=== PATIENT | male | born 1965 | race Caucasian/White ===

== ENCOUNTER 2016-07-27 02:26 | Emergency (ER) | payer BC, OTHER ==
[~2016-07-27] VITALS: Ht 175.3 cm; Wt 100.4 kg
[2016-07-27 02:30] VITALS: BP 123/86
[2016-07-27] MEDS ORDERED: NAPROXEN500 MG PO (03:44)
[2016-07-27] MEDS ORDERED: VALIUM5 MG PO (03:44)
== END 2016-07-27 03:58 | disposition home or self-care (01) ==
LOC: EME 02:26 → EXP 02:26
DX: S09.11XA Strain of muscle and tendon of head, initial encounter (principal); X50.3XXA Overexertion from repetitive movements, initial encounter
CPT/HCPCS: 99281; 99283

== ENCOUNTER 2017-09-17 20:44 | Emergency (ER) | payer BC ==
[~2017-09-17] VITALS: Ht 175.3 cm; Wt 99.7 kg
[~2017-09-17 20:44] MED LIST: NAPROXEN500 MG PO; VALIUM5 MG PO
[2017-09-17 21:14] LABS: HEMATOCRIT 45.6 % (38.0-50.0); HEMOGLOBIN 15.6 G/DL (12.5-16.6); MCH 28.5 PG (29.0-34.0); MCHC 34.2 G/DL (30.0-36.0); MCV 83.4 FL (86-99); PLATELET COUNT 178 K/uL (156-360); RBC DIS.WIDTH-CV 13.3 % (11.8-14.6); RBC DIS.WIDTH-SD 40.4 % (39-53); RED BLOOD COUNT 5.47 M/uL (4.00-5.50); WHITE BLOOD COUNT 6.1 K/uL (4.1-10.2)
[2017-09-17 21:16] LABS: APPEARANCE CLEAR ((CLEAR)); BILIRUBIN NEGATIVE; BLOOD NEGATIVE; COLOR YELLOW ((YELLOW)); GLUCOSE (STRIP) >=500; KETONES 5; LEUKOCYTES NEGATIVE; NITRITE NEGATIVE; PROTEIN (STRIP) 30; SPECIFIC GRAVITY 1.027 (1.000-1.030); UCUL ADDED? NO; UROBILINOGEN 0.2 MG/DL (0.2-1.0)
[2017-09-17 21:22] LABS: ALBUMIN 4.5 g/dL (3.2-4.8); CHLORIDE 102 mEq/L (99-109); POTASSIUM 4.1 mEq/L (3.7-5.4); SODIUM 140 mEq/L (136-147)
[2017-09-17 21:24] LABS: GLUCOSE 192 mg/dL (70-99); TOTAL PROTEIN 8.1 g/dL (6.4-8.3)
[2017-09-17 21:26] LABS: TOTAL BILIRUBIN 0.6 mg/dL (0.0-1.0)
[2017-09-17 21:28] LABS: ALKALINE PHOSPHATASE 112 IU/L (3-129); CREATININE 1.2 mg/dL (0.6-1.3); GFR ESTIMATE (CALCULATED) > 59 mL/min/ (58.99-99999)
[2017-09-17 21:29] LABS: UREA NITROGEN (BUN) 15 mg/dL (9-23)
[2017-09-17 21:30] LABS: AST (GOT) 55 IU/L (2-34)
[2017-09-17 21:31] LABS: ALT (GPT) 69 IU/L (3-49)
[2017-09-17 23:27] VITALS: BP 122/87
== END 2017-09-17 23:37 | disposition home or self-care (01) ==
LOC: EME 20:44
DX: R10.31 Right lower quadrant pain (principal); Z98.1 Arthrodesis status; Z88.0 Allergy status to penicillin
CPT/HCPCS: 74176; 80053; 81003; 85027; 99281; 99284

== ENCOUNTER 2017-12-18 18:56 | Emergency (ER) | payer BC ==
[~2017-12-18] VITALS: Ht 175.3 cm; Wt 93.9 kg
[2017-12-18 19:37] LABS: HEMOGLOBIN 14.1 G/DL (12.5-16.6); MCH 27.6 PG (29.0-34.0); MCHC 34.4 G/DL (30.0-36.0); MCV 80.4 FL (86-99); PLATELET COUNT 157 K/uL (156-360); RBC DIS.WIDTH-CV 13.2 % (11.8-14.6); RBC DIS.WIDTH-SD 38.5 % (39-53); WHITE BLOOD COUNT 4.9 K/uL (4.1-10.2)
[2017-12-18 19:50] LABS: APPEARANCE CLEAR ((CLEAR)); BILIRUBIN NEGATIVE; BLOOD NEGATIVE; COLOR STRAW ((YELLOW)); GLUCOSE (STRIP) >=500; KETONES NEGATIVE; LEUKOCYTES NEGATIVE; NITRITE NEGATIVE; PROTEIN (STRIP) NEGATIVE; SPECIFIC GRAVITY 1.028 (1.000-1.030); UCUL ADDED? NO; UROBILINOGEN 0.2 MG/DL (0.2-1.0)
[2017-12-18 19:52] LABS: CHLORIDE 101 mEq/L (99-109); POTASSIUM 3.7 mEq/L (3.7-5.4); SODIUM 139 mEq/L (136-147)
[2017-12-18 19:53] LABS: GLUCOSE 294 mg/dL (70-99)
[2017-12-18 19:57] LABS: CREATININE 1.3 mg/dL (0.6-1.3); GFR ESTIMATE (CALCULATED) > 59 mL/min/ (58.99-99999)
[2017-12-18 19:58] LABS: UREA NITROGEN (BUN) 17 mg/dL (9-23)
[2017-12-18 20:29] VITALS: BP 119/71
== END 2017-12-18 20:30 | disposition home or self-care (01) ==
LOC: EME 18:56
PROVIDERS: Physician Assistant
DX: R10.32 Left lower quadrant pain (principal); Z98.1 Arthrodesis status; Z88.0 Allergy status to penicillin
CPT/HCPCS: 80048; 81003; 85027; 99281; 99283